=== PATIENT | female | born 1950 | race American Indian/Alaskan Native ===

== ENCOUNTER 2016-11-21 10:14 | Outpatient (CLI) | payer MEDICARE ==
--- NOTE | 2016-11-21 10:48 | XRay Report ---
CHEST 2 VIEWS INDICATION: Sleep apnea. COMPARISON: None similar at this institution. FINDINGS: PA and lateral chest radiographs demonstrate normal cardiomediastinal silhouette. Clear lungs. Slight aortic knob calcifications. Mild eventration of the right hemidiaphragm anteriorly. Demineralized bones with multilevel thoracic spondylosis and slight dextrocurvature. Probable cholecystectomy clips. CONCLUSION: No acute chest process, as described. Thank you for the opportunity to participate in this patient's care.
== END 2016-11-21 10:15 | disposition home or self-care (01) ==
LOC: XRAY 10:14
PROVIDERS: ATTEND Internal Medicine
DX: I10 Essential (primary) hypertension (principal); K21.9 Gastro-esophageal reflux disease without esophagitis; G47.30 Sleep apnea, unspecified; I70.0 Atherosclerosis of aorta; J98.6 Disorders of diaphragm; M47.894 Other spondylosis, thoracic region; M43.8X4 Other specified deforming dorsopathies, thoracic region
CPT/HCPCS: 71020